=== PATIENT | female | born 1990 | race Caucasian/White ===

== ENCOUNTER → 2017-01-04 | Outpatient (CLI) | payer OTHER | LOC: MW.CHOBGYN 14:29 | PROVIDERS: ATTEND Nurse Practitioner Women's Health | DX: Z34.90 Encounter for supervision of normal pregnancy, unspecified, unspecified trimester (principal) | CPT/HCPCS: 87081 ==

== ENCOUNTER 2017-01-21 01:01 | Inpatient (IN) | payer OTHER ==
[2017-01-21] MEDS ORDERED: Misoprostol 200 MCG Tab PO PRN (02:43)
[2017-01-21] MEDS ORDERED: Butorphanol 1 MG/ML SDV IVPUSH PRN (02:43)
[2017-01-21] MEDS ORDERED: Terbutaline 1 MG/ML SDV SUBCUT PRN (02:43)
[2017-01-21] MEDS ORDERED: Water For Irrigation,Sterile 1,000 ML Container IRR PRN (02:43)
[2017-01-21] MEDS ORDERED: Sodium Chloride 0.9% 10 ML Syringe FLUSH PRN (02:43)
[2017-01-21] MEDS ORDERED: Carboprost Tromethamine 250 MCG/1 ML Amp IM PRN (02:43)
[2017-01-21] MEDS ORDERED: Sodium Chloride 0.9% 2.5 ML Syringe FLUSH PRN (02:43)
[2017-01-21] MEDS ORDERED: Lidocaine 1% 50 ML MDV INJECT PRN (02:43)
[2017-01-21] MEDS ORDERED: Methylergonovine 0.2 MG/1 ML Amp IM PRN ×2 (02:43→12:39)
[2017-01-21] MEDS ORDERED: Lactated Ringers 1,000 ML IV SCH (03:00)
[2017-01-21] MEDS ORDERED: ceFAZolin 2 GM in Premix Bag 1 BAG IV ONE ×2 (03:00→03:08)
[2017-01-21] MEDS ORDERED: Misoprostol 25 MCG (1/4 of 100 MCG) Tab VAG SCH (03:00)
[2017-01-21] MEDS ORDERED: Misoprostol 25 MCG (1/4 of 100 MCG) Tab PO SCH (03:00)
[2017-01-21] MEDS ORDERED: ceFAZolin 1 GM Vial IV ONE (03:30)
[2017-01-21] MEDS ORDERED: Oxytocin/Lactated Ringers 30 UNIT/500 ML BAG IV SCH ×2 (08:00)
[2017-01-21] MEDS ORDERED: ceFAZolin 1 GM in Premix Bag 1 BAG IV SCH (11:00)
[2017-01-21] MEDS ORDERED: ceFAZolin 1 GM Vial IV SCH (11:30)
[2017-01-21] MEDS ORDERED: oxyCODONE 5 MG Tab PO PRN (12:39)
[2017-01-21] MEDS ORDERED: Bisacodyl 10 MG Supp RECTAL PRN (12:39)
[2017-01-21] MEDS ORDERED: Benzocaine/Menthol 20%-0.5% Spray 78 GM Cannister TOP PRN (12:39)
[2017-01-21] MEDS ORDERED: Docusate Sodium 100 MG Cap PO PRN (12:39)
[2017-01-21] MEDS ORDERED: Witch Hazel Medicated Pads 40/Jar TOP PRN (12:39)
[2017-01-21] MEDS ORDERED: Ibuprofen 800 MG Tab PO PRN (12:39)
[2017-01-21] MEDS ORDERED: Lanolin 100% Cream 7 GM Tube TOP PRN (12:39)
[2017-01-21] MEDS ORDERED: Acetaminophen 500 MG Tab PO PRN (12:39)
--- NOTE | 2017-01-21 13:07 | OR ---
SURGEON: Jane Roach M.D. DATE OF PROCEDURE: 01/21/2017 PREOPERATIVE DIAGNOSES: Thirty-nine and 1/7th week intrauterine , active spontaneous labor. POSTOPERATIVE DIAGNOSES: Thirty-nine and 1/7th week intrauterine , active spontaneous labor. PROCEDURE: 1. Term spontaneous vaginal delivery. 2. Repair of second-degree laceration. ANESTHESIA: Local. ESTIMATED BLOOD LOSS: Less than 300 mL. FINDINGS: Live-born male, score 7 and 9. Weight is pending at the time of dictation. COMPLICATIONS: None known. DISPOSITION: Mother and baby are in LDRP in good condition. BRIEF HISTORY: This is a 26-year-old, G1, P0. She presents at 39 and 1/7th weeks' gestation with spontaneous rupture of membranes followed by onset of labor. She is group B strep positive. She had concern about a family history of penicillin allergy. There was no sensitivity done on the culture. Therefore, Ancef was given for group B Strep prophylaxis. She did receive 2 doses prior to delivery. She had category 1 with episodes of category 2 heart tones throughout labor and she progressed to complete. DESCRIPTION OF PROCEDURE: With the patient in dorsal lithotomy position, the patient pushed over an hour and 20-minute time period to a 5+ station, at which time the head was delivered spontaneously and atraumatically over the perineum with support with subsequent delivery of the 's shoulders and body without any difficulty. The was bulb suctioned by nose and mouth and the infant was handed to the mother in the presence of the nurse in attendance at delivery. The infant was a liveborn male, score 7 and 9. After the cord had ceased to pulsate, it was doubly clamped and cut. Pitocin was initiated after delivery of the to assist with delivery of the placenta which was delivered spontaneously, Schultze intact with 3 vessels. Upon inspection of the pelvis and perineum, there were no periurethral, vaginal sidewall, cervical, or rectal lacerations. There was a second-degree perineal laceration that was repaired using 3 interrupted figure- of-eight sutures of 3-0 Caprosyn for the deep perineal tissue, a running locked suture of 3-0 Caprosyn for the vaginal mucosa, and a deep running suture for the more superficial subcutaneous tissue of the perineum, and a subcuticular suture of the same for the skin. Final sponge, needle, and instrument counts were correct. There were no known complications. The was in nursery in good condition. Mother remained in recovery in good condition. SAMANTHA RAMSEY /[id number]
[2017-01-22 06:01] VITALS: BP 130/86
--- NOTE | 2017-01-22 08:54 | PCM.PNPP ---
- General Info Date of Service: 01/22/17 Functional Status: Reports: pain controlled (has not used any pain medication,) , tolerating diet, ambulating, urinating, other (lochia is light) - Review of Systems General: Reports: No Symptoms HEENT: Reports: no symptoms Pulmonary: Reports: no symptoms Cardiovascular: Reports: No Symptoms Gastrointestinal: Reports: No symptoms Genitourinary: Reports: no symptoms Musculoskeletal: Reports: no symptoms Skin: Reports: no symptoms Neurological: Reports: No Symptoms Psychiatric: Reports: no symptoms - Patient Data Vital Signs - most recent: Last Vital Signs Temp 36.7 C 01/22/17 04:00 Pulse 102 H 01/22/17 04:00 Resp 15 01/22/17 04:00 BP 130/86 01/22/17 04:00 Pulse Ox 97 01/22/17 04:00 Weight - most recent: 90.718 kg Lab Results - last 24 hrs: Laboratory Results - last 24 hr 01/22/17 Range/Units 05:17 Hgb 8.9 L (12.0-16.0) g/dL Hct 26.9 L (36.0-46.0) % Med Orders - Current: Current Medications Acetaminophen (Tylenol Extra Strength) 1,000 mg PO Q4H PRN PRN Reason: Pain Benzocaine/Menthol (Dermoplast Pain Relief 20%-0.5% Raymond) 78 gm TOP ASDIRECTED PRN PRN Reason: Perineal Comfort Measure Last Admin: 01/21/17 14:15 Dose: 1 can Bisacodyl (Dulcolax) 10 mg RECTAL .ONCE PRN PRN Reason: Constipation Docusate Sodium (Colace) 100 mg PO BID PRN PRN Reason: Constipation Last Admin: 01/21/17 14:14 Dose: 100 mg Emollient Ointment (Lansinoh Hpa) 0 gm TOP ASDIRECTED PRN PRN Reason: Sore Nipples Ibuprofen (Motrin) 800 mg PO Q6H PRN PRN Reason: Pain Methylergonovine Maleate (Methergine) 0.2 mg IM .ONCE PRN PRN Reason: Excessive Vaginal Bleeding Oxycodone HCl (Oxycodone) 5 mg PO Q2H PRN PRN Reason: Pain Witch Sera (Tucks) 1 pad TOP ASDIRECTED PRN PRN Reason: comfort care Last Admin: 01/21/17 14:15 Dose: 1 carton Discontinued Medications Butorphanol Tartrate (Stadol) 1 mg IVPUSH Q1H PRN PRN Reason: Pain Last Admin: 01/21/17 08:59 Dose: 1 mg Carboprost Tromethamine (Hemabate Ds) 250 mcg IM ASDIRECTED PRN PRN Reason: Post Hemorrhage Lactated Ringer's (Ringers, Lactated) 1,000 mls @ 150 mls/hr IV ASDIRECTED RAFI Last Infusion: 01/21/17 15:27 Dose: Infused Oxytocin/Lactated Ringer's (Pitocin In Lr 30 Units/500 Ml) 30 unit in 500 mls @ 999 mls/hr IV TITRATE RAFI PRN Reason: 999 MUNITS/MIN Stop: 01/21/17 08:31 Oxytocin/Lactated Ringer's (Pitocin In Lr 30 Units/500 Ml) 30 unit in 500 mls @ 2 mls/hr IV TITRATE RAFI; 2 MUNITS/MIN PRN Reason: Protocol Cefazolin Sodium/Dextrose 2 gm (/ Premix) 50 mls @ 100 mls/hr IV ONETIME ONE Stop: 01/21/17 03:29 Last Admin: 01/21/17 03:51 Dose: 100 mls/hr Cefazolin Sodium/Dextrose 1 gm (/ Premix) 50 mls @ 100 mls/hr IV Q8H RAFI Cefazolin Sodium/Dextrose 2 gm (/ Premix) 50 mls @ as directed IV .STK-MED ONE Stop: 01/21/17 03:09 Lidocaine HCl (Xylocaine 1%) 50 ml INJECT .ONCE PRN PRN Reason: Laceration repair Last Admin: 01/21/17 11:56 Dose: 50 ml Methylergonovine Maleate (Methergine) 0.2 mg IM ASDIRECTED PRN PRN Reason: Post Hemorrhage Misoprostol (Cytotec) 200 mcg PO .ONCE PRN PRN Reason: Post Hemorrhage Misoprostol (Cytotec) 25 mcg VAG .ONCE RAFI Last Admin: 01/21/17 03:24 Dose: 25 mcg Misoprostol (Cytotec) 25 mcg PO .ONCE RAFI Last Admin: 01/21/17 03:24 Dose: 25 mcg Sodium Chloride (Saline Flush) 10 ml FLUSH ASDIRECTED PRN PRN Reason: Keep Vein Open Sodium Chloride (Saline Flush) 2.5 ml FLUSH ASDIRECTED PRN PRN Reason: Keep Vein Open Sterile Water (Sterile Water For Irrigation) 1,000 ml IRR ASDIRECTED PRN PRN Reason: delivery Last Admin: 01/21/17 11:56 Dose: 1,000 ml Terbutaline Sulfate (Brethine) 0.25 mg SUBCUT ASDIRECTED PRN PRN Reason: Tacysystole - Infant Interaction Infant Disposition, : in Room with Family Interaction: Holding Infant Feeding: Breastfed Infant; Nursed Well Support Person: - Recovery Exam Fundal Tone: Firm Fundal Level: At Umbilicus Fundal Placement: Midline Lochia Amount: Scant Lochia Color: Rubra/Red Perineum Description: Intact, Minimal Bruising/Swelling Episiotomy/Laceration: Approximated Bladder Status: Voiding Urinary Elimination: Voided - Exam General: alert, oriented HEENT: Pupils equal Neck: supple Lungs: Normal respiratory effort Abdomen: soft, no tenderness, no distension Extremities: no edema (1+ equal bilaterally.) Skin: warm, dry, intact Wound/Incisions: healing well Neurological: no new focal deficit Psy/Mental Status: alert, normal affect, normal mood - Problem List & Annotations (1) Vaginal delivery SNOMED Code(s): 913276807 Code(s): O80 - ENCOUNTER FOR FULL-TERM UNCOMPLICATED DELIVERY Status: Acute Current Visit: Yes - Problem List Review Problem List Initiated/Reviewed/Updated: Yes - My Orders Last 24 Hours: My Active Orders 01/21/17 12:39 Acetaminophen [Tylenol Extra Strength] 1,000 mg PO Q4H PRN Benzocaine/Menthol [Dermoplast Pain Relief 20%-0.5% Raymond] 78 gm TOP ASDIRECTED PRN Bisacodyl [Dulcolax] 10 mg RECTAL .ONCE PRN Docusate Sodium [Colace] 100 mg PO BID PRN Ibuprofen [Motrin] 800 mg PO Q6H PRN Lanolin [Lansinoh HPA] See Dose Instructions TOP ASDIRECTED PRN Methylergonovine [Methergine] 0.2 mg IM .ONCE PRN Witch Sera [Tucks] 1 pad TOP ASDIRECTED PRN oxyCODONE 5 mg PO Q2H PRN Resuscitation Status Routine 01/21/17 12:40 Patient Status [ADT] Routine May Shower [RC] ASDIRECTED Up ad Dulce [RC] ASDIRECTED Vital Signs [RC] PER UNIT ROUTINE Assess Lochia [WOMSER] Per Unit Routine Assess Uterine Involution [WOMSER] Per Unit Routine Perineal Care [OM.PC] Per Unit Routine Peripheral IV Discontinue [OM.PC] Routine 01/21/17 Lunch Regular Diet [DIET] - Assessment Assessment:: PPD#1 after , no complaints, well, minimal lochia, not requiring pain medication, would like to go home today. - Plan Plan:: Dismiss to home today, declines rx for pain medications, discharge instructions reviewed.
== END 2017-01-22 15:04 | disposition home or self-care (01) | DRG 775 ==
LOC: MW.OBCHECK 01:01 → MW.OB 01:04 → MW.OBCHECK 02:44 → OBSVTOIN 12:40 → MW.OB 16:18
PROVIDERS: ADMIT Obstetrics & Gynecology; ATTEND Obstetrics & Gynecology
PROC: 10E0XZZ Delivery of Products of Conception, External Approach (ICD-10-PCS; principal; 2017-01-21)
PROC: 0KQM0ZZ Repair Perineum Muscle, Open Approach (ICD-10-PCS; 2017-01-21)
DX: O70.1 Second degree perineal laceration during delivery (principal); Z37.0 Single live birth; Z3A.39 39 weeks gestation of pregnancy
CPT/HCPCS: 36415; 59025; 84112; 85014; 85018; 85027; 86850; 86900; 86901; A9270-GY; J0595; J0690; J7120